=== PATIENT | male | born 1995 | race Two or more races ===

== ENCOUNTER 2025-03-28 10:38 | Emergency (ER) | payer OTHER ==
[~2025-03-28] VITALS: Ht 170.2 cm; Wt 89.8 kg
[2025-03-28 11:15] VITALS: TEMP 97.9
[2025-03-28] MEDS: SODIUM CHLORIDE 0.9% 1000ML 1,000 ML IV ONE (15:03)
[2025-03-28 16:43] VITALS: PULSE 70; RESP 16; O2SAT 98
[2025-03-28] MEDS ORDERED: ONDANSETRON ODT4 MG PO (17:26)
[2025-03-28] MEDS: FAMOTIDINE 20 MG/2 ML VIAL IV STA ×2 (17:43→17:44)
[2025-03-28 17:49] VITALS: TEMP 98.6
== END 2025-03-28 17:54 | disposition home or self-care (01) ==
LOC: FSED 12:51
DX: R11.2 Nausea with vomiting, unspecified (principal); R17 Unspecified jaundice; R74.8 Abnormal levels of other serum enzymes
CPT/HCPCS: 99284